=== PATIENT | male | born 1985 | race Caucasian/White ===

== ENCOUNTER 2024-04-25 11:17 | Emergency (ER) | payer BC ==
[~2024-04-25] VITALS: Ht 162.6 cm; Wt 70.3 kg
[2024-04-25 11:26] VITALS: O2SAT 99
== END 2024-04-25 11:34 | disposition left against medical advice (07) ==
LOC: ER 11:17
DX: R42 Dizziness and giddiness (principal); Z53.21 Procedure and treatment not carried out due to patient leaving prior to being seen by health care provider
CPT/HCPCS: A4606; A4663